=== PATIENT | male | born 2005 | race Two or more races ===

== ENCOUNTER 2025-05-06 22:31 | Emergency (ER) | payer MEDICAID ==
[~2025-05-06] VITALS: Ht 175.3 cm; Wt 113.5 kg
[2025-05-06 23:57] LABS: Basophils # (auto) 0.2 10 ^3/uL (0-0.2); Eosinophils # (auto) 0 10 ^3/uL (0-0.8); Mean Corpuscular Volume 87.6 fL (80.0-100.0); Monocytes # (auto) 0.7 10 ^3/uL (0-1.3); Monocytes % (auto) 4.5 % (0.0-12.0); White Blood Cell 15.5 10^3/uL (4.4-10.8)
[2025-05-06 23:58] LABS: Basophils % (auto) 1.2 % (0.0-2.0); Eosinophils % (auto) 0.2 % (0.0-7.0); Hematocrit 52.5 % (41.0-53.0); Hemoglobin 18.6 g/dL (13.5-17.5); Lymphocytes # (auto) 1.7 10 ^3/uL (0.4-5.4); Lymphocytes % (auto) 10.7 % (10.0-50.0); Mean Corpuscular Hgb Conc. 35.4 g/dL (32.0-36.0); Neutrophils # (auto) 12.9 10 ^3/uL (1.6-8.6); Neutrophils % (auto) 83.4 % (37.0-80.0); Nucleated Red Blood Cells % 0.2 %; Platelet Count (auto) 247 10^3/uL (140-450); Red Blood Cells 5.99 10^6/uL (4.5-5.90)
[2025-05-07 00:04] LABS: Alkaline Phosphatase 89 U/L (46-116); Anion Gap 12 (5-15); BUN/Creatinine Ratio 11.7 (10.0-20.0); Blood Urea Nitrogen 14 mg/dL (9-23); Calcium 9.7 mg/dL (8.7-10.4); Carbon Dioxide 24 mmol/L (20-31); Chloride 105 mmol/L (98-107); Glucose 102 mg/dL (74-106); Potassium 3.6 mmol/L (3.5-5.1); Sodium 141 mmol/L (136-145); Total Protein 7.5 g/dL (5.7-8.2)
[2025-05-07 00:05] LABS: Alanine Aminotransferase 41 U/L (7-40); Aspartate Aminotransferase 38 U/L (<34); Bilirubin, Total 0.5 mg/dL (0.2-1.0)
--- NOTE | 2025-05-07 00:44 | ECG ---
[facility] Test Date: 2025-05-07 Test Time: 00:42:51 Pat Name: LAYLA CRUZ Department: ER Room: Gender: M Marketing Operations Analyst: RUDDY : 2005 Requested By: JEOVANNY KUMARI Order Number: [id number] Reading MD: Saul Ryder Measurements Intervals [place] Rate: 100 P: 60 ME: 134 QRS: -3 QRSD: 95 T: 13 QT: 346 QTc: 447 Interpretive Statements Sinus tachycardia Electronically Signed On 05-08-2025 22:48:51 PDT by Saul Ryder Please click the below link to view image of tracing.
--- NOTE | 2025-05-07 02:20 | ED.PDOC ---
History of Present Illness HPI Comments 19-year-old male, with no significant history, presents with mother s/p syncope event. Mother reports on patient waking up and running into her bedroom and passing out and falling face first onto the ground. No prior history of of passing out in the past. Patient has no recollection of the events, with the exception of vomiting after waking up earlier prior to entering his mother's room and waking up on the ground. Motor comments on vomitus and patient's bedroom being clear, with a tinge of blood. At time of assessment, patient reports being asymptomatic. Chief Complaint: Syncope Time Seen by MD: 23:20 Reviewed Notes: Nurses Notes, Medications, Allergies Allergies: Coded Allergies: NO KNOWN ALLERGIES (Unverified , 05/06/25) Information Source: Patient, Relative (Mother) Mode of Arrival: Ambulatory Severity: Moderate Timing: Hours Duration: Minutes Prehospital treatment: None Review of Systems: REVIEW OF SYSTEMS: No fever, no chills, or fatigue HEENT: No sore throat, no earache, no congestion, no neck pain. Cardiac: Syncope. No chest pain. No palpitations. Lungs: No shortness of breath, no cough. GI: No nausea, no vomiting, no diarrhea, no constipation, no abdominal pain : No dysuria, frequency, or urgency. No hematuria. Musculoskeletal: No joint pain , no joint swelling, no extremity edema. Skin: No rash, no itching. Neuro: No headache, no dizziness, no weakness Vital Signs Vital Signs Date Time Temp Pulse Resp B/P (MAP) Pulse Ox O2 Delivery O2 Flow Rate FiO2 05/07/25 02:20 100 05/06/25 22:46 99.3 20 147/91 (109) 92 99.3 Physical Exam General: Awake, alert and oriented. No acute distress. Skin: Skin in warm, dry and intact. Appropriate color for ethnicity. HEENT: PERRLA. The head is normocephalic and atraumatic. Conjunctivae are clear without exudates or hemorrhage. Sclera is non-icteric. EOM are intact. No signs of nystagmus. Eyelids are normal in appearance without swelling or lesions. Oral mucosa is pink and moist Neck: The neck is supple with normal range of motion. No JVD. Cardiac: Heart rate and rhythm are normal. No murmurs, gallops, or rubs are auscultated. Respiratory: No signs of respiratory distress. Lung sounds are clear in all lobes bilaterally without rales, rhonchi, or wheezes. Abdominal: Abdomen is soft, non-tender without distention, guarding or rigidity. Bowel sounds are present and normoactive in all four quadrants. Extremities: Upper and lower extremities are atraumatic in appearance without deformity or edema. Neurological: The patient is awake, alert and oriented to person, place, and time with normal speech. Speech is clear. There is no facial asymmetry. Normal [id number] test. Patient is able to stand on each leg individually without issue. Negative Romberg test. normal gait Psychiatric: Appropriate mood and affect. Good judgement and insight. Past Medical History PAST MEDICAL HISTORY: Denies Surgical History: Denies all surgeries Social History Smoker: Non-Smoker Alcohol: Denies ETOH Use Drugs: Denies Drug Use Lives In: Home Was a procedure done? Was a procedure done?: No EKG EKG : Pulse Rate (adult): 100 [place]: Normal Cardiac Rhythm: ST Block: None Hypertrophy: None ST: Normal Differential Dx Considerations may include: Differential diagnoses considered include but are not limited to cardiac structural disease, arrhythmia, acute coronary syndrome, orthostasis, pulmonary embolism, dissection, seizure, basilar stroke, other. X-Ray, Labs, Meds, VS Vital Signs Date Time Temp Pulse Resp B/P (MAP) Pulse Ox O2 Delivery O2 Flow Rate FiO2 05/07/25 02:20 100 05/07/25 00:42 100 05/06/25 22:46 99.3 127 20 147/91 (109) 92 99.3 Lab Test 05/07/25 00:28 05/06/25 23:36 Range/Units Troponin I High Sensitivity 9 6 </=54 ng/L White Blood Count 15.5 H 4.4-10.8 10^3/uL Red Blood Count 5.99 H 4.5-5.90 10^6/uL Hemoglobin 18.6 H 13.5-17.5 g/dL Hematocrit 52.5 41.0-53.0 % Mean Corpuscular Volume 87.6 80.0-100.0 fL Mean Corpuscular Hemoglobin 31.0 28.0-32.0 pg Mean Corpuscular Hemoglobin Concent 35.4 32.0-36.0 g/dL Red Cell Distribution Width 13.0 11.8-14.3 % Platelet Count 247 140-450 10^3/uL Mean Platelet Volume 9.8 6.9-10.8 fL Neutrophils (%) (Auto) 83.4 H 37.0-80.0 % Lymphocytes (%) (Auto) 10.7 10.0-50.0 % Monocytes (%) (Auto) 4.5 0.0-12.0 % Eosinophils (%) (Auto) 0.2 0.0-7.0 % Basophils (%) (Auto) 1.2 0.0-2.0 % Neutrophils # (Auto) 12.9 H 1.6-8.6 10 ^3/uL Lymphocytes # (Auto) 1.7 0.4-5.4 10 ^3/uL Monocytes # (Auto) 0.7 0-1.3 10 ^3/uL Eosinophils # (Auto) 0 0-0.8 10 ^3/uL Basophils # (Auto) 0.2 0-0.2 10 ^3/uL Nucleated Red Blood Cells 0.2 % Sodium Level 141 136-145 mmol/L Potassium Level 3.6 3.5-5.1 mmol/L Chloride Level 105 98-107 mmol/L Carbon Dioxide Level 24 20-31 mmol/L Anion Gap 12 5-15 Blood Urea Nitrogen 14 9-23 mg/dL Creatinine 1.20 0.700-1.30 mg/dL Glomerular Filtration Rate Calc 89 >90 mL/min BUN/Creatinine Ratio 11.7 10.0-20.0 Serum Glucose 102 74-106 mg/dL Calcium Level 9.7 8.7-10.4 mg/dL Total Bilirubin 0.5 0.2-1.0 mg/dL Aspartate Amino Transferase (AST) 38 H <34 U/L Alanine Aminotransferase (ALT) 41 H 7-40 U/L Alkaline Phosphatase 89 46-116 U/L B-Type Natriuretic Peptide 0.28 0-100 pg/mL Total Protein 7.5 5.7-8.2 g/dL Albumin 5.0 H 3.2-4.8 g/dL Time of 1ST Reevaluation: 23:50 Reevaluation 1ST: Unchanged Patient Education/Counseling: Need For Follow Up Family Education/Counseling: Need For Follow Up SEPSIS Sepsis Screen Date sepsis recognized/suspect: May 06, 2025 Time Sepsis recognized/suspect: 2245 Recent Procedure: No On Antibiotic Therapy: No Respiratory Rate >20: No Heart Rate >90: Yes Temp<36 C (96.8 F) or >38.3 C: No SBP <90 or MAP <65 mmHG: No New Acute Mental Status Change: No Is the patient on CPAP, BIPAP,: No Physician Orders Orthostatic Vital Signs (05/06/25 ) Electrocardigram (05/06/25 23:28) Drug Screen (05/06/25 23:28) Urinalysis (05/06/25 23:28) Electrocardigram (05/07/25 02:28) Vital Signs .PER UNIT PROTOCOL (05/07/25 01:56) Vital Signs Date Time Temp Pulse Resp B/P (MAP) Pulse Ox O2 Delivery O2 Flow Rate FiO2 05/07/25 02:20 100 05/07/25 00:42 100 05/06/25 22:46 99.3 127 20 147/91 (109) 92 99.3 Laboratory Tests Test 05/06/25 23:36 White Blood Count 15.5 10^3/uL (4.4-10.8) H Departure 1 Departure Time of Disposition: 02:37 Impression: Primary Impression: Episode of syncope Additional Impressions: Sinus tachycardia Leukocytosis LFT elevation Disposition: 01 HOME / SELF CARE / HOMELESS Condition: Stable Additional Instructions: ED DISCHARGE INSTRUCTIONS Instructions: Please read all instructions provided in this packet carefully. Although you have been discharged from the Emergency Department, this does not mean that you have a "clean bill of health". No definitive diagnosis for your symptoms has been made today. It is possible that you are in the process of developing a serious illness. This is why you must return to the ED without fail if any new or worsening symptoms (especially if your symptoms include passing out, seizure-like activity, weakness, heart racing, chest pain, trouble breathing, abdominal pain, fever, headache, confusion, trouble seeing, or tro uble walking) It is also very important that you see a primary care doctor within the next 3-5 days to follow up. If you are unable to get an appointment, return to the ED for re-evaluation. Lightheadedness or Faintness: Care Instructions Overview Lightheadedness is a feeling that you are about to faint or "pass out." You do not feel as if you or your surroundings are moving. It is different from vertigo, which is the feeling that you or things around you are spinning or tilting. Lightheadedness usually goes away or gets better when you lie down. If lightheadedness gets worse, it can lead to a fainting spell. It is common to feel lightheaded from time to time. It may be caused by many things. These include allergies, dehydration, illness, and medicines. Lightheadedness usually is not caused by a serious problem. It often is caused by a short-lasting drop in blood pressure and blood flow to your head that occurs when you get up too quickly from a seated or lying position. Follow-up care is a brothers part of your treatment and safety. Be sure to make and go to all appointments, and call your doctor if you are having problems. It's also a good idea to know your test results and keep a list of the medicines you take. How can you care for yourself at home? Lie down for 1 or 2 minutes when you feel lightheaded. After lying down, sit up slowly and remain sitting for 1 to 2 minutes before slowly standing up. Avoid movements, positions, or activities that have made you lightheaded in the past. Get plenty of rest, especially if you have a cold or flu, which can cause lightheadedness. Make sure you drink plenty of fluids, especially if you have a fever or have been sweating. Do not drive or put yourself and others in danger while you feel lightheaded. When should you call for help? Call 911 anytime you think you may need emergency care. For example, call if: You passed out (lost consciousness). You have symptoms of a stroke. These may include: Sudden numbness, tingling, weakness, or loss of movement in your face, arm, or leg, especially on only one side of your body. Sudden vision changes. Sudden trouble speaking. Sudden confusion or trouble understanding simple statements. Sudden problems with walking or balance. A sudden, severe headache that is different from past headaches. You have symptoms of a heart attack. These may include: Chest pain or pressure, or a strange feeling in the chest. Sweating. Shortness of breath. Nausea or vomiting. Pain, pressure, or a strange feeling in the back, neck, jaw, or upper belly or in one or both shoulders or arms. Lightheadedness or sudden weakness. A fast or irregular heartbeat. After you call 911, the rocket assembly operator may tell you to chew 1 adult-strength or 2 to 4 low-dose aspirin. Wait for an ambulance. Do not try to drive yourself. Watch closely for changes in your health, and be sure to contact your doctor if: Your lightheadedness gets worse or does not get better with home care. Credits for Lightheadedness or Faintness: Care Instructions Current as of: June 14, 2024 Author: [employer] Staff Clinical Review Board All [employer] education is reviewed by a team that includes physicians, nurses, advanced practitioners, registered dieticians, and other healthcare professionals. Comments Patient is feeling improved. He has been able to ambulate around the emergency department without difficulty. Discussed with the patient is mother option for admission for further observation. Patient and mother would like to go home. Patient is denying palpitations, chest pain, shortness of breath, lightheadedness, dizziness or weakness. He is neurologically intact on exam. Discussed abnormal lab results with the patient and mother and advised to follow up with the primary care provider promptly for re-evaluation. - I reviewed the following notes from the pt's past medical encounters: N/A The following tests were ordered, and results were reviewed by me: (See diagnostic results section) The following test were independently interpreted by me: EKG Additional information was gathered from interviewing the following independent historians: Patient's mother I reviewed and agreed with the following test results read by other providers: N/A I discussed treatments and results with patient and mother Decision regarding hospitalization or escalation of hospital level of care: Risks and benefits of admission for further treatment of patient's condition was considered however due to patient's stable condition patient will be discharged to follow up closely or return to care for worsening of condition or inability to follow up. Critical Care Note Critical Care Time?: No Stability Stability form required: No Heart Score Heart Score: Heart Score Response (Comments) Value History N/A 0 EKG N/A 0 Age N/A 0 Risk Factors N/A 0 Troponin N/A 0 Total 0 I personally scribed for JEOVANNY KUMARI MD ([email or web address]) on 05/07/25 at 02:20. Electronically submitted by Juan Bell ([email or web address]). JEOVANNY KUMARI MD May 07, 2025 02:20
[2025-05-07 03:20] VITALS: BP 140/80; PULSE 98; RESP 14; TEMP 98.3; O2SAT 97
== END 2025-05-07 03:30 | disposition home or self-care (01) ==
LOC: ER 22:31
DX: R55 Syncope and collapse (principal); D72.829 Elevated white blood cell count, unspecified; R00.0 Tachycardia, unspecified; R79.89 Other specified abnormal findings of blood chemistry
CPT/HCPCS: 36415; 80053; 83880; 84484; 85025; 93005